=== PATIENT | female | born 1970 | race Caucasian/White ===

== ENCOUNTER 2018-07-15 18:34 | Emergency (ER) | payer BC, OTHER ==
[~2018-07-15] VITALS: Ht 170.2 cm; Wt 89.5 kg
[~2018-07-15 18:34] MED LIST: LRT5 PO
[2018-07-15 18:37] VITALS: TEMP 36.9; Ht 170.2 cm; Wt 89.5 kg
[2018-07-15] MEDS ORDERED: KETOROLAC TROMETHAMINE 30 MG/ML VIAL IV STA (18:58)
[2018-07-15] MEDS ORDERED: SODIUM CHLORIDE 0.9% 1000ML 1,000 ML IV STA (18:58)
[2018-07-15] MEDS ORDERED: SODIUM CHLORIDE 0.9% 1000ML 1,000 ML IV ONE (18:58)
--- NOTE | 2018-07-15 19:16 | EMERGENCY ROOM VISIT NOTE ---
History Report prepared by Efrain: Gail Arceo Under the Supervision of: Dr. Nickolas Huff M.D. First contact with patient: 18:47 Chief Complaint: BACK PAIN Stated Complaint: BACK PAIN,ABDOMINAL PAIN, VOMIT History of Present Illness The patient is a 47 year old female who presents to the Emergency Room with complaints of worsening severe low back pain that started just prior to arrival. The patient states that she was playing a phone swinging game at a [employer] when she started having low back pain that radiated around her side to her right abdomen and down her right leg. She reports that the pain is worse when she lies down and that the pain is worse than the pain she had during a past kidney stone. She states that she has never wanted pain medication , but her pain is so bad now that she would like some. The patient notes that she was about to take Ibuprofen for her pain when she started vomiting. The patient also complains of brown urine and numbness in the middle toe on her left foot. The patient denies any burning urination, urination frequency, fevers , chest pain, shortness of breath, headaches, or pain while breathing. The patient also denies any abdominal surgeries or a history of diabetes. Source of History: patient, spouse/significant other Onset: just prior to arrival Position: back (lower) Symptom Intensity: severe Quality: other (pain) Timing: worsening Modifying Factors (Worsening): other (lying down) Associated Symptoms: + vomiting, + urinary symptoms (brown urine), + numbness (in the middle toe on her left foot) Review of Systems See HPI for pertinent positives & negatives. A total of 10 systems reviewed and were otherwise negative. Past Medical & Surgical Medical Problems: (1) Kidney stone Old medical records were reviewed. Nurse's notes were reviewed and I agree with. Family History No significant family history Social History Smoking Status: Former Smoker Marital Status: Housing Status: lives with family Occupation Status: employed Current/Historical Medications Scheduled Hydrocodone/Acetaminophen 5MG/500MG (Vicodin 5MG/500MG), 1-2 TAB PO Q6HR PRN Tamsulosin Hcl (Flomax), 0.4 MG PO QD Scheduled PRN Oxycodone Immediate Rel Tab (Roxicodone Ir), 1-2 TAB PO Q8 PRN for Severe Pain Miscellaneous Medications None (Patient States No Home Meds) Allergies Coded Allergies: No Known Allergies (Verified , 08/20/05) Uncoded Allergies: pain reliever -not tylenol or ibuprofen (Allergy, Unknown, 01/09/03) Physical Exam Vital Signs Date Time Temp Pulse Resp B/P (MAP) Pulse Ox O2 Delivery O2 Flow Rate FiO2 07/15/18 20:51 85 18 142/82 98 07/15/18 20:27 86 18 158/97 98 Room Air 07/15/18 18:37 36.9 92 20 159/88 100 Room Air Physical Exam General: Well developed well nourished non ill-appearing middle aged female complaining of right flank pain and abdominal pain in no acute distress, breathing comfortably on room air. Normal speech HEENT: Normal cephalic atraumatic. Pupils are equal round and reactive to light. Extraocular movements are intact. Oropharynx is pink with moist mucous membranes. No swelling of the mouth lips or tongue. Neck: Supple with a midline trachea. No meningeal signs or stiffness, no JVD or bruits. No Stridor. Chest: Clear to auscultation bilaterally. No wheezes or rhonchi. No increased work of breathing. Heart: regular rate and rhythm. Abdomen: Soft, nondistended without rebound guarding or rigidity. Abdomen is minimally reproducibly tender. Extremities: No cyanosis clubbing or edema. No calf tenderness or assymetry Spine/Back. Non tender to palpation. No CVA tenderness Skin: Good turgor without rashes. Neurologic exam: Cranial nerves two through 12 are intact. Motor and sensation are intact and symmetrical throughout. Medical Decision & Procedures ER Provider Diagnostic Interpretation: Radiology results as stated below per my review and radiologist interpretation: CT OF THE ABDOMEN AND PELVIS WITHOUT CONTRAST, STONE PROTOCOL CLINICAL HISTORY: Right flank pain. COMPARISON STUDY: None. TECHNIQUE: Helical axial images of the abdomen and pelvis were obtained without IV or oral contrast according to renal stone protocol. A dose lowering technique was utilized adhering to the principles of ALARA. FINDINGS: An 8 mm x 7 mm distal right ureteral calculus results in moderate right hydroureteronephrosis. This calculus is located inferior to the level of the sacroiliac joint and approximately 6 cm proximal to the ureterovesical junction. No additional urinary calculi are identified. Additional pelvic calcifications likely reflect phlebolith. Evaluation of the remainder of the abdomen and pelvis is suboptimal on this unenhanced exam. The liver, spleen, adrenal glands and pancreas are normal. There is no evidence for a bowel obstruction. No adenopathy. Colonic diverticulosis is noted without evidence for acute diverticulitis. The ovaries are not enlarged. There are no suspicious osseous lesions. IMPRESSION: 8 mm x 7 mm distal right ureteral calculus which results in moderate right hydroureteronephrosis. Calculus located inferior to level of sacroiliac joint approximately 6 cm proximal to the ureterovesical junction. Electronically signed by: Km Flowers M.D. 07/15/2018 7:45 PM Dictated Date/Time: 07/15/2018 7:39 PM Laboratory Results 07/15/18 19:05 Red Blood Count 5.02, Mean Corpuscular Volume 84.9, Mean Corpuscular Hemoglobin 29.1, Mean Corpuscular Hemoglobin Concent 34.3, Mean Platelet Volume 10.4, Neutrophils (%) (Auto) 60.0, Lymphocytes (%) (Auto) 29.0, Monocytes (%) (Auto) 7.9, Eosinophils (%) (Auto) 2.5, Basophils (%) (Auto) 0.3, Neutrophils # (Auto) 5.65, Lymphocytes # (Auto) 2.73, Monocytes # (Auto) 0.74, Eosinophils # (Auto) 0.24, Basophils # (Auto) 0.03 07/15/18 19:05 Test 07/15/18 18:57 07/15/18 19:05 Urine Color YELLOW Urine Appearance CLOUDY (CLEAR) Urine pH 5.0 (4.5-7.5) Urine Specific Lutz 1.021 (1.000-1.030) Urine Protein 1+ (NEG) Urine Glucose (UA) NEG (NEG) Urine Ketones NEG (NEG) Urine Occult Blood 3+ (NEG) Urine Nitrite NEG (NEG) Urine Bilirubin NEG (NEG) Urine Urobilinogen NEG (NEG) Urine Leukocyte Esterase NEG (NEG) Urine WBC (Auto) 1-5 /hpf (0-5) Urine RBC (Auto) >30 /hpf (0-4) Urine Hyaline Casts (Auto) 1-5 /lpf (0-5) Urine Epithelial Cells (Auto) 10-20 /lpf (0-5) Urine Bacteria (Auto) NEG (NEG) White Blood Count 9.42 K/uL (4.8-10.8) Red Blood Count 5.02 M/uL (4.2-5.4) Hemoglobin 14.6 g/dL (12.0-16.0) Hematocrit 42.6 % (37-47) Mean Corpuscular Volume 84.9 fL (80-100) Mean Corpuscular Hemoglobin 29.1 pg (25-34) Mean Corpuscular Hemoglobin Concent 34.3 g/dl (32-36) Platelet Count 281 K/uL (130-400) Mean Platelet Volume 10.4 fL (7.4-10.4) Neutrophils (%) (Auto) 60.0 % Lymphocytes (%) (Auto) 29.0 % Monocytes (%) (Auto) 7.9 % Eosinophils (%) (Auto) 2.5 % Basophils (%) (Auto) 0.3 % Neutrophils # (Auto) 5.65 K/uL (1.4-6.5) Lymphocytes # (Auto) 2.73 K/uL (1.2-3.4) Monocytes # (Auto) 0.74 K/uL (0.11-0.59) Eosinophils # (Auto) 0.24 K/uL (0-0.5) Basophils # (Auto) 0.03 K/uL (0-0.2) RDW Standard Deviation 43.4 fL (36.4-46.3) RDW Coefficient of Variation 14.0 % (11.5-14.5) Immature Granulocyte % (Auto) 0.3 % Immature Granulocyte # (Auto) 0.03 K/uL (0.00-0.02) Anion Gap 8.0 mmol/L (3-11) Est Creatinine Clear Calc Drug Dose 102.9 ml/min Estimated GFR () 106.8 Estimated GFR (Non- 92.1 BUN/Creatinine Ratio 29.0 (10-20) Calcium Level 9.0 mg/dl (8.5-10.1) Total Bilirubin 0.2 mg/dl (0.2-1) Direct Bilirubin < 0.1 mg/dl (0-0.2) Aspartate Amino Transf (AST/SGOT) 22 U/L (15-37) Alanine Aminotransferase (ALT/SGPT) 29 U/L (12-78) Alkaline Phosphatase 95 U/L (45-117) Total Protein 7.2 gm/dl (6.4-8.2) Albumin 3.4 gm/dl (3.4-5.0) Lipase 145 U/L (73-393) Human Chorionic Gonadotropin, Qual NEG (NEG) Laboratory studies as stated above per my review. Medications Administered Medications (Trade) Dose Ordered Sig/Chaparro Route Start Time Stop Time Status Last Admin Dose Admin Sodium Chloride 1,000 ml @ 999 mls/hr Q1H1M STAT IV 07/15/18 18:58 07/15/18 19:58 DC 07/15/18 19:26 999 MLS/HR Sodium Chloride 1,000 ml @ 150 mls/hr Q6H40M ONCE IV 07/15/18 18:58 07/15/18 21:17 DC 07/15/18 20:25 150 MLS/HR Ketorolac Tromethamine (Toradol Inj) 30 mg NOW STAT IV 07/15/18 18:58 07/15/18 19:02 DC 07/15/18 19:25 30 MG Oxycodone HCl (Roxicodone Immediate Rel 5MG Home Pack) 1 homepack UD ONCE PO 07/15/18 20:45 07/15/18 20:46 DC 07/15/18 20:45 1 HOMEPACK Tamsulosin HCl (Flomax Cap) 0.4 mg NOW ONCE PO 07/15/18 20:45 07/15/18 20:46 DC 07/15/18 20:45 0.4 MG ED Course 1855: Past medical records reviewed. The patient was evaluated in room B12, and a complete history and physical examination were performed. 1857: Administered Toradol Inj 30 mg IV, Sodium Chloride 1000 ml @ 150 mls/hr IV , Sodium Chloride 1000 ml @ 999 mls/hr IV. 2016: I checked on the patient and she is feeling better. She would like to go home. 2029: Upon reevaluation, the patient is resting. I discussed the results and treatment plan with her. She verbalized agreement of the treatment plan. The patient was discharged home. 2044: Administered Flomax Cap 0.4 mg PO, Oxycodone HCl 1 homepack PO. Medical Decision Differentials include kidney stone, appendicitis, musculoskeletal infection, ovarian. This patient comes in as described above she has pain in the right back rating around to the abdomen it came on suddenly as severe when it happened. She is a remote history of kidney stones. She has had no known blood in her urine or fever or chills. No trauma. No chest pain or shortness of breath or pleurisy. No numbness or weakness. IV access established hydrated IV normal saline. she was given Toradol 30 fernando IV and is feeling significant better and the pain resolved. Her urinalysis does not suggest a UTI. She has no white count or fever to suggest infection. She has no significant electrolyte or metabolic abnormalities. A CAT scan shows a large distal stone. This has associated hydronephrosis. Given the size, she may not pass it however it has made it pretty far down already. I did discuss case Dr. Bradshaw and he said she can call the office tomorrow and they can see her close follow-up. I will start her on Flomax. She was ibuprofen for pain and strain her urine. She should drink plenty fluids. For breakthrough pain she use OxyIR 5 mg, 1 or 2 pills or 4-6 hours as needed. She was warned that this can make her drowsy do not take before drink, drive, working. She is happy to plan and discharged to home. Medication Reconcilliation Current Medication List: was personally reviewed by me Blood Pressure Screening Patient's blood pressure: Elevated blood pressure Blood pressure disposition: Elevated BP felt to be situational Impression Primary Impression: Renal colic Additional Impressions: Kidney stone Right flank pain Scribe Attestation The scribe's documentation has been prepared under my direction and personally reviewed by me in its entirety. I confirm that the note above accurately reflects all work, treatment, procedures, and medical decision making performed by me. Departure Information Dispostion Home / Self-Care Prescriptions Oxycodone Immediate Rel Tab (ROXICODONE IR) 5 Mg Tab 1-2 TAB PO Q8 Y for Severe Pain, #15 TAB Prov: Nickolas Huff M.D. 07/15/18 Tamsulosin Hcl (FLOMAX) 0.4 Mg Cap 0.4 MG PO QD for 7 Days, #7 CAP Prov: Nickolas Huff M.D. 07/15/18 Forms HOME CARE DOCUMENTATION FORM, IMPORTANT VISIT INFORMATION Patient Instructions My [facility] Additional Instructions Rest. Drink plenty of fluids. Strain your urine Return if: Fever or chills, not tolerating fluids, increasing or uncontrollable pain or vomiting, any new problems or concerns Use ibuprofen 400 mg every 6 hours, take with food For breakthrough pain, may use OxyIR 5 mg, 1 or 2 pills every 8 hours. OxyIR may make you drowsy do not take before drinking, driving, working Use Flomax once a day Follow-up with urology, call office tomorrow at 9:00 and try to get either tomorrow or on Monday Return to the ER any point if symptoms worsen Problem Qualifiers
[2018-07-15 19:25] LABS: BASO % 0.3 %; BASO ABS # 0.03 K/uL (0-0.2); EOS % 2.5 %; EOS ABS # 0.24 K/uL (0-0.5); HEMATOCRIT 42.6 % (37-47); HEMOGLOBIN 14.6 g/dL (12.0-16.0); IG# 0.03 K/uL (0.00-0.02); LYMPH ABS # 2.73 K/uL (1.2-3.4); MEAN CELL VOLUME 84.9 fL (80-100); MEAN CORPUSCULAR HEMOGLOBIN 29.1 pg (25-34); MEAN CORPUSCULAR HGB CONC 34.3 g/dl (32-36); MEAN PLATELET VOLUME 10.4 fL (7.4-10.4); MONO % 7.9 %; MONO ABS # 0.74 K/uL (0.11-0.59); NEUT ABS # 5.65 K/uL (1.4-6.5); PLATELET COUNT 281 K/uL (130-400); RED CELL DISTRIBUTION WIDTH SD 43.4 fL (36.4-46.3); WHITE BLOOD COUNT 9.42 K/uL (4.8-10.8)
[2018-07-15 19:44] LABS: ALBUMIN 3.4 gm/dl (3.4-5.0); ALKALINE PHOSPHATASE 95 U/L (45-117); ALT/SGPT 29 U/L (12-78); AST/SGOT 22 U/L (15-37); BLOOD UREA NITROGEN 22 mg/dl (7-18); CARBON DIOXIDE 28 mmol/L (21-32); CREATININE 0.76 mg/dl (0.60-1.20); GLUCOSE 108 mg/dl (70-99); LIPASE 145 U/L (73-393); POTASSIUM 3.8 mmol/L (3.5-5.1); SODIUM 139 mmol/L (136-145); TOTAL PROTEIN 7.2 gm/dl (6.4-8.2)
--- NOTE | 2018-07-15 19:46 | DIAGNOSTIC IMAGING REPORT ---
CT OF THE ABDOMEN AND PELVIS WITHOUT CONTRAST, STONE PROTOCOL CLINICAL HISTORY: Right flank pain. COMPARISON STUDY: None. TECHNIQUE: Helical axial images of the abdomen and pelvis were obtained without IV or oral contrast according to renal stone protocol. A dose lowering technique was utilized adhering to the principles of ALARA. FINDINGS: An 8 mm x 7 mm distal right ureteral calculus results in moderate right hydroureteronephrosis. This calculus is located inferior to the level of the sacroiliac joint and approximately 6 cm proximal to the ureterovesical junction. No additional urinary calculi are identified. Additional pelvic calcifications likely reflect phlebolith. Evaluation of the remainder of the abdomen and pelvis is suboptimal on this unenhanced exam. The liver, spleen, adrenal glands and pancreas are normal. There is no evidence for a bowel obstruction. No adenopathy. Colonic diverticulosis is noted without evidence for acute diverticulitis. The ovaries are not enlarged. There are no suspicious osseous lesions. IMPRESSION: 8 mm x 7 mm distal right ureteral calculus which results in moderate right hydroureteronephrosis. Calculus located inferior to level of sacroiliac joint approximately 6 cm proximal to the ureterovesical junction. Electronically signed by: Km Flowers M.D. 07/15/2018 7:45 PM Dictated Date/Time: 07/15/2018 7:39 PM
[2018-07-15] MEDS ORDERED: TAMS0.4C38 PO (20:41)
[2018-07-15] MEDS ORDERED: OXYC-737 PO (20:41)
[2018-07-15] MEDS ORDERED: TAMSULOSIN HCL 0.4 MG CAP PO ONE (20:45)
[2018-07-15] MEDS ORDERED: OXYCODONE IR HOME PACK PO ONE (20:45)
[2018-07-15 20:51] VITALS: BP 142/82; PULSE 85; O2SAT 98
== END 2018-07-15 20:53 | disposition home or self-care (01) ==
LOC: C.EDB 18:36
DX: N13.2 Hydronephrosis with renal and ureteral calculous obstruction (principal); Z87.891 Personal history of nicotine dependence

== ENCOUNTER → 2018-07-18 | Outpatient (CLI) | payer OTHER ==
[~2018-07-18] MED LIST changes: +OXYC-737 PO; +TAMS0.4C38 PO
--- NOTE | 2018-07-18 11:05 | DIAGNOSTIC IMAGING REPORT ---
KUB HISTORY: Follow-up study in a patient with recent right renal calculus N20.0 Nephrolithiasis COMPARISON: CT study 07/15/2017 FINDINGS: The bowel gas pattern is non-obstructive. There is no organomegaly. Distal migration of the 7 mm right ureteral calculus. No additional renal or ureteral calculi identified. Multiple phleboliths of the pelvis. No pneumoperitoneum or pneumatosis. No fracture. IMPRESSION: Distal migration of the 7 mm right ureteral calculus, now likely within close proximity to the ureterovesicular junction. Electronically signed by: Davy Love M.D. 07/18/2018 11:03 AM Dictated Date/Time: 07/18/2018 11:01 AM
--- NOTE | 2018-07-18 12:20 | DIAGNOSTIC IMAGING REPORT ---
CHEST 2 VIEWS ROUTINE HISTORY: 47 years-old Female N20.0 NEPHROLITHIASIS preoperative exam. No acute chest complaints. COMPARISON: Chest and rib radiographs 01/18/2018 TECHNIQUE: PA and lateral views of the chest FINDINGS: Cardiomediastinal and hilar silhouettes are within normal limits. There is no pneumothorax, pleural effusion, focal airspace consolidation or overt pulmonary edema. Bones of the chest appear grossly intact. IMPRESSION: No acute process. The above report was generated using voice recognition software. It may contain grammatical, syntax or spelling errors. Electronically signed by: Davy Love M.D. 07/18/2018 12:19 PM Dictated Date/Time: 07/18/2018 12:16 PM
== END | disposition home or self-care (01) ==
LOC: C.RAD 10:26
PROVIDERS: ATTEND Urology
DX: N20.0 Calculus of kidney (principal); N20.1 Calculus of ureter

== ENCOUNTER → 2018-07-20 | Day surgery (SDC) | payer OTHER ==
[2018-07-19 11:12] VITALS: Ht 171.5 cm; Wt 77.3 kg
[~2018-07-20] VITALS: Ht 171.5 cm; Wt 77.3 kg
[~2018-07-20] MED LIST changes: +ATROPINE SULFATE 0.1 MG/ML 5ML SYR IV PRN; +CIPROFLOXACIN / D5W 400 MG IV SCH; +DEXAMETHASONE SOD INJ 4 MG/ML VIAL ONE; +EpHEDrine SULFATE INJ 50 MG/ML AMP IV PRN; +FENTANYL CITRATE INJ 50 MCG/1 ML 2 ML VIAL IV PRN; +FENTANYL CITRATE INJ 50 MCG/1 ML 2 ML VIAL ONE; +LIDOCAINE HCL 2% 2 ML VIAL (20MG/ML) ONE; -LRT5 PO; +MIDAZOLAM HCL 1 MG/ML 2ML VIAL ONE; +ONDANSETRON INJ 2 MG/ML 2 ML VIAL IV PRN; +ONDANSETRON INJ 2 MG/ML 2 ML VIAL ONE; +OXYCODONE/ACETAMINOPHEN 5-325 TAB PO PRN; +PROPOFOL IV EMULSION 10 MG/ML 20 ML VIAL ONE
[2018-07-20] MEDS: LACTATED RINGER'S 1000ML 1,000 ML IV SCH ×2 (06:36→09:07)
--- NOTE | 2018-07-20 07:22 | History & Physical Bridge Note ---
H&P Re-Evaluation Bridge Note: I have examined the patient, reviewed the History & Physical and in the interval since the performance of the History & Physical I have noted the following changes of clinical significance: No changes noted
--- NOTE | 2018-07-20 08:07 | Discharge Instructions-SurgCtr ---
Discharge Instructions Date of Service Jul 20, 2018. Visit Reason for Visit: STONE Discharge Discharge Diagnosis / Problem: STONE Discharge Goals Goal(s): Therapeutic intervention Medications Stopped Medications Name(s): Ibuprofen Last dose unknown Activity Recommendations Activity Limitations: per Instructions/Follow-up section Exercise/Sports Limitations: rest today May Resume Sexual Activity: when tolerated Shower/Bathe: no limitations Driving or Machine Use: resume 1 day after discharge MEDICATIONS: Resume previous medications unless instructed otherwise by your surgeon. Resume pre-[facility] medication except for aspirin, coumadin or other blood thinners. __ Toradol 10 mg every 6 hours for initial pain. __ Lortab 5 mg 1-2 every 4 hours for pain. _X_ Percocet 5 mg 1-2 every 4 hours for pain. __ Macrodantin 50 mg x 3 a day. __ Flomax 1 tab daily one half (1/2) hour after supper. SPECIAL CARE INSTRUCTIONS: 1. Get KUB (x-ray) _X_ day before or day of office visit and bring x-ray to office __ get x-ray 2 days before and tell office you are getting x-rays when you call for the appointment. 2. Strain ALL urine. 3. Please call if you have a fever, chills, severe pain, or constant dribbling of urine. 4. Office phone number . FOLLOW UP VISIT: Please call the office to schedule a follow-up appointment at . Anesthesia . Post Anesthesia Instructions: If you have had General Anesthesia or IV Sedation: * Do not drive today. * Resume driving when surgeon permits. * Do not make important decisions or sign legal documents today. * Call surgeon for: 1. Temperature elevations greater than 101 degrees F. 2. Uncontrollable pain. 3. Excessive bleeding. 4. Persistent nausea and vomiting. 5. Medication intolerance (nausea, vomiting or rash). * For nausea and vomiting use only clear liquids such as: tea, soda, bouillon until nausea subsides, then gradually increase diet as tolerated. * If you have any concerns or questions, call your surgeon's office. If physician is unavailable and it is an emergency, call 911 or go to the nearest emergency room. . Diet Recommendations Home Diet: resume previous diet Pending Studies Studies pending at discharge: no Medical Emergencies . Who to Call and When: Medical Emergencies: If at any time you feel your situation is an emergency, please call 911 immediately. . Non-Emergent Contact Non-Emergency issues call your: Urologist Call Non-Emergent contact if: temperature is above 101.5, your pain is not controlled . . "Provider Documentation" section prepared by Adan Vásquez. . [place] Drug Monitoring Program Search Results: patient reviewed within database
--- NOTE | 2018-07-20 08:10 | [facility] Operative Report ---
Operative Report Operative Date Jul 20, 2018. 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 Upon arrival appropriate preoperative antibiotics were administered and general anesthesia induced. The patient was placed in supine position and the stone was localized under fluoroscopy. A total of [_3000__] shocks were delivered to the stone. There appeared to be good fragmentation of the stone. Details of this procedure can be found on the [facility] information sheet. At the conclusion of the case the patient was extubated and taken to the PACU in stable condition. There were no complications. I attest to the content of the Intraoperative Record and any orders documented therein. Any exceptions are noted below.
--- NOTE | 2018-07-20 09:16 | Anesthesia Progress Nt - [facility] ---
Anesthesia Post Op Note Date & Time Jul 20, 2018 at 09:16 Vital Signs Pain Intensity: 0 Vital Signs Past 12 Hours Date Time Temp Pulse Resp B/P (MAP) Pulse Ox O2 Delivery O2 Flow Rate FiO2 07/20/18 08:40 36.3 70 12 125/80 98 Mask 6 07/20/18 06:24 36.5 83 16 138/85 (102) 98 Room Air Notes Mental Status: alert / awake / arousable, participated in evaluation Pt Amnestic to Procedure: Yes Nausea / Vomiting: adequately controlled Pain: adequately controlled Airway Patency, RR, SpO2: stable & adequate BP & HR: stable & adequate Hydration State: stable & adequate Anesthetic Complications: no major complications apparent
[2018-07-20 09:22] VITALS: TEMP 36.6
[2018-07-20 09:49] VITALS: BP 143/78; PULSE 76; O2SAT 99
== END | disposition home or self-care (01) ==
LOC: X.SURG 06:04
PROVIDERS: ATTEND Urology
DX: N21.1 Calculus in urethra (principal)